=== PATIENT | male | born 1985 | race African-American/Black ===

== ENCOUNTER 2021-09-18 19:50 | Emergency (ER) | payer SELFPAY ==
[~2021-09-18] VITALS: Ht 177.8 cm; Wt 75.0 kg
[2021-09-18 20:23] VITALS: BP 135/76
[2021-09-18] MEDS ORDERED: ACETAMINOPHEN 325MG TABLET PO ONE (21:30)
[2021-09-18] MEDS ORDERED: ONDANSETRON HCL 4MG TABLET PO ONE (21:30)
[2021-09-18] MEDS ORDERED: TOPUD PO (22:05)
[2021-09-18] MEDS ORDERED: IBUP-2028 MT (22:05)
== END 2021-09-18 22:10 ==
LOC: ER 19:50
DX: K52.9 Noninfective gastroenteritis and colitis, unspecified (principal); R11.10 Vomiting, unspecified; R50.9 Fever, unspecified; Z20.822 Contact with and (suspected) exposure to COVID-19
CPT/HCPCS: 87426; 99283; C9803; Q0162

== ENCOUNTER 2024-05-12 09:27 | Emergency (ER) | payer MEDICAID, OTHER ==
[~2024-05-12] VITALS: Ht 177.8 cm; Wt 72.0 kg
[~2024-05-12 09:27] MED LIST: IBUP-2028 MT; TOPUD PO
[2024-05-12 09:29] VITALS: O2SAT 98
[2024-05-12 09:49] VITALS: BP 140/82; PULSE 72; RESP 16; TEMP 37.1; O2SAT 100
[2024-05-12] MEDS ORDERED: IBUP-2029 MT (12:24)
[2024-05-12] MEDS ORDERED: IBUPROFEN 600MG TABLET PO ONE (12:30)
[2024-05-12 13:08] LABS: INFLUENZA TYPE A Presumptive Negative (Pres. Neg.); INFLUENZA TYPE B Presumptive Negative (Pres. Neg.)
== END 2024-05-12 12:33 | disposition home or self-care (01) ==
LOC: ER 09:27
DX: B34.9 Viral infection, unspecified (principal); Z20.822 Contact with and (suspected) exposure to COVID-19
CPT/HCPCS: 71045; 87426; 87804; 99284